=== PATIENT | male | born 1980 | race Caucasian/White ===

== ENCOUNTER 2020-01-28 19:50 | Emergency (ER) | payer SELFPAY ==
[2020-01-28 20:00] VITALS: BP 176/107; PULSE 89; RESP 14; TEMP 36.6; O2SAT 97; BMI 32.5
[2020-01-28] MEDS: TRAMadol 50 mg Tablet 100 MG PO (20:58)
[2020-01-28 21:00] VITALS: BP 197/125; PULSE 81; RESP 14; O2SAT 95
--- NOTE | 2020-02-04 00:28 | W.ED.DENTAL ---
HPI - Dental/Oral General: Chief complaint: Dental/Oral Stated complaint: dental pain Time Seen by Provider: 01/28/20 20:51 History of Present Illness: HPI Narrative: Glue tooth ache MD Complaint: tooth pain Review of Systems Narrative: Tooth ache Psych: Denies: anxiety or depression PFSH ED PFSH: Social History Smoking and tobacco status: current every day smoker Physical Exam HENMT: HEAD & SCALP: other (Stable dental caries no lockjaw) Psych: COMMON NORMALS: mental status grossly normal Course Vital Signs: Vital signs: Vital Signs Temperature 97.9 F 01/28/20 20:00 Pulse Rate 81 01/28/20 21:00 Respiratory Rate 14 01/28/20 21:00 Blood Pressure 197/125 01/28/20 21:00 Pulse Oximetry 95 01/28/20 21:00 Discharge Plan Discharge Clinical Impression: Toothache Condition: Stable Prescriptions: New tramadol 50 mg tablet 50 mg PO Q6H PRN (Reason: pain) Qty: 7 RF: 0 Discharge Orders: Discharge Order (Routine); Ordered 01/28/20 Ordered By: Damian Olivares Referrals: Greg Amor FNP [Primary Care Provider] - Discharge Diet: Usual diet Discharge Activity: Resume usual activity Patient Instructions: Dental Caries (ED) Activity Restrictions/Additional Instructions: Follow-up with dentist soon as possible Discharge Date/Time: 01/28/20 21:01 Coding Level of Care Code ED Lithographic Stripper for Jono Bridges
== END 2020-01-28 21:01 ==
PROVIDERS: Emergency Provider Nurse Practitioner Family; PCP Nurse Practitioner
DX: K08.89 Other specified disorders of teeth and supporting structures (principal); F17.210 Nicotine dependence, cigarettes, uncomplicated
CPT/HCPCS: 12345; 99281; 99282

== ENCOUNTER 2020-10-31 20:33 | Emergency (ER) | payer SELFPAY ==
[2020-10-31 20:48] VITALS: BP 139/85; PULSE 102; RESP 14; TEMP 36.3; O2SAT 96; BMI 34.4
[2020-10-31 20:58] LABS: Glucose Point of Care 445 mg/dL (70-110)
--- NOTE | 2020-11-01 00:13 | ED_ITS ---
HPI - General Adult General: Chief complaint: General Medical Stated complaint: high blood sugar Time Seen by Provider: 11/01/20 00:12 History of Present Illness: HPI narrative: Patient is a 40-year-old male who comes to the ED with elevated blood sugar. Patient has a past medical history of diabetes type 2. Patient was on Metformin but stopped taking it due to insurance approximately a year ago. Patient's Metformin dose was 1000 mg twice a day. He is currently not taking anything to manage his diabetes. He had this generalized feeling of elevated blood sugar and came to the ED to get evaluated. Denies any other symptoms, such as chest pain, shortness of breath, abdominal pain, nausea/vomiting, diarrhea, constipation, dysuria or hematuria. Associated symptoms: Reports malaise (Generalized feeling unwell due to elevated blood sugar); Deny chest pain, dyspnea, headache(s), nausea, rash, palpitations or vomiting Review of Systems Const: Reports: malaise (Generalized feeling unwell due to elevated blood sugar); Denies: fever(s), chills or fatigue Eyes: Denies: change in vision or eye discomfort ENMT: Denies: throat pain, odynophagia, nasal discharge or nasal congestion Card: Denies: chest pain, palpitations, edema, swelling of feet/ankles, dyspnea on exertion or orthopnea Resp: Denies: dyspnea, productive cough or non-productive cough GI: Denies: abdominal pain, nausea, vomiting, diarrhea, constipation or hematochezia : Denies: flank pain, difficulty urinating, dysuria or hematuria Musc: Denies: neck pain, back pain or extremity swelling Skin/Breast: Denies: rash or new lesions Neuro: Denies: headache(s), numbness in extremities or weakness in extremities [facility] PFSH: Social History Smoking and tobacco status: current every day smoker Physical Exam Const: COMMON NORMALS: no acute distress, patient oriented x3 and alert GENERAL APPEARANCE: cooperative and comfortable HENMT: COMMON NORMALS: normocephalic HEAD & SCALP: normocephalic MOUTH: Normal oral and palatal mucosa present THROAT: posterior oropharynx normal and uvula midline Eye: COMMON NORMALS: Equal, round and reactive pupils present PUPIL: Yes Equal, round and reactive pupils present Neck/C-Spine: COMMON NORMALS: supple GENERAL: Yes normal visual inspection Resp: COMMON NORMALS: normal respiratory effort, No retractions, No use of accessory muscles and clear to auscultation bilaterally AUSCULTATION: clear to auscultation bilaterally Cardio: COMMON NORMALS: regular rate, regular rhythm, S1 normal heart sound present, S2 normal heart sound present, No gallops present (Cardio), No clicks present (Cardio), No murmurs present (Cardio) and Peripheral pulses 2+ throughout RATE: regular rate RHYTHM: regular rhythm HEART SOUNDS: S1 normal heart sound present and S2 normal heart sound present PERIPHERAL PULSES: Peripheral pulses 2+ throughout GI: COMMON NORMALS: Normal to inspection, nondistended, normoactive bowel sounds present, Soft to palpation, non-tender and no masses PALPATION: Yes Soft to palpation : COMMON NORMALS: Yes no CVA tenderness BLADDER/KIDNEY EXAM: Yes no CVA tenderness Back/Pelvis: COMMON NORMALS: no CVA tenderness Extremity: COMMON NORMALS: normal to inspection Neuro: COMMON NORMALS: patient oriented x3 and moves all extremities SENSORIUM/ORIENTATION: Yes alert Skin: GENERAL SKIN EXAM: dry skin Course Vital Signs: Vital signs: Vital Signs Temperature 97.3 F L 10/31/20 20:48 Pulse Rate 96 11/01/20 01:42 Respiratory Rate 17 11/01/20 01:42 Blood Pressure 137/81 11/01/20 01:42 Pulse Oximetry 97 11/01/20 01:42 MDM - General Adult MDM Narrative: Medical decision making narrative: Patient is a 40-year-old male who comes to the ED with hyperglycemia. Patient has type 2 diabetes and was taking Metformin to treat it, but stopped taking it due to loss of insurance. Patient felt like his blood sugar was elevated and he came to the ED for evaluation. First blood sugar test here in the ED was 445 this was taken while patient was in the waiting room. His CBC was unremarkable and his blood sugar at the time he got back into her room was 319. Patient says the symptoms are improving and is feeling better. He was given 5 units of NovoLog subcutaneous and discharged. Patient was sent home with a prescription for Metformin. He was told to follow-up with his PCP in 7 to 10 days for reevaluation. Return to ED precautions given. Patient understood and agreed with plan. Lab Data: Attestation: I reviewed the patient's lab results. Labs: Lab Results 10/31/20 10/31/20 10/31/20 Range/Units 20:46 23:23 23:23 WBC 8.4 (4.0-10.0) 10^3/ uL RBC 5.37 H (4.1-5.3) 10^6/u L Hgb 17.3 H (11.7-16.6) g/dL Hct 49.0 (42.0-52.0) % MCV 91.2 (80-94) fL MCH 32.2 (28.0-34.0) pg MCHC 35.3 (30.0-36.0) g/dL RDW 11.9 L (12.1-15.1) % Plt Count 237 (130-400) 10^3/c mm MPV 10.6 H (7.4-10.4) fL Neut % (Auto) 53.1 % Lymph % (Auto) 33.9 % Sierra % (Auto) 6.1 % Eos % (Auto) 5.5 % Baso % (Auto) 0.7 % Neut # (Auto) 4.45 (1.8-7.7) 10^3/u L Lymph # (Auto) 2.8 (0.8-4.8) 10^3/u L Sierra # (Auto) 0.5 (0.2-0.9) 10^3/u L Eos # (Auto) 0.5 (0.0-0.8) 10^3/u L Baso # (Auto) 0.1 (0.0-0.1) 10^3/u L Nucleated RBC % (a uto) 0 % Nucleated RBCs # 0.0 /100WBC Sodium 134 L (136-145) mmol/L Potassium 4.2 (3.5-5.1) mmol/L Chloride 97 L (98-107) mmol/L Carbon Dioxide 26 (22-29) mmol/L Anion Gap 15.2 (5-19) BUN 14 (6-20) mg/dL Creatinine 1.2 (0.7-1.2) mg/dL GFR Calculation 67.8 L (90-130) mL/min Glucose 319 H (65-115) mg/dL POC Glucose 445 H (70-110) mg/dL Calculated Osmolal ity 291 (285-295) mOsm/k g Calcium 9.7 (8.5-10.5) mg/dL Total Bilirubin 0.4 (0.15-1.2) mg/dL AST 12 (0-40) U/L ALT 31 (0-41) U/L Alkaline Phosphata se 100 (40-130) IU/L Total Protein 7.9 (6.6-8.7) g/dL Albumin 4.4 (3.5-5.2) g/dL Globulin 3.5 (1.3-4.6) g/dL Urine Color (Yellow) Urine Appearance (CLEAR) Urine pH (5-7) Ur Specific Gravit y (1.005-1.030) Urine Protein (Negative) Urine Glucose (UA) (Normal) Urine Ketones (Negative) Urine Blood (Negative) Urine Nitrate (Negative) Urine Bilirubin (Negative) Urine Urobilinogen (Negative) mg/dL Ur Leukocyte Juani ase (Negative) Urine RBC (0-2) /hpf Urine WBC (0-5) /hpf Ur Squamous Epith Cells (0-5) /hpf Amorphous Sediment Urine Bacteria (NONE) /hpf 10/31/20 Range/Units 23:50 WBC (4.0-10.0) 10^3/ uL RBC (4.1-5.3) 10^6/u L Hgb (11.7-16.6) g/dL Hct (42.0-52.0) % MCV (80-94) fL MCH (28.0-34.0) pg MCHC (30.0-36.0) g/dL RDW (12.1-15.1) % Plt Count (130-400) 10^3/c mm MPV (7.4-10.4) fL Neut % (Auto) % Lymph % (Auto) % Sierra % (Auto) % Eos % (Auto) % Baso % (Auto) % Neut # (Auto) (1.8-7.7) 10^3/u L Lymph # (Auto) (0.8-4.8) 10^3/u L Sierra # (Auto) (0.2-0.9) 10^3/u L Eos # (Auto) (0.0-0.8) 10^3/u L Baso # (Auto) (0.0-0.1) 10^3/u L Nucleated RBC % (a uto) % Nucleated RBCs # /100WBC Sodium (136-145) mmol/L Potassium (3.5-5.1) mmol/L Chloride (98-107) mmol/L Carbon Dioxide (22-29) mmol/L Anion Gap (5-19) BUN (6-20) mg/dL Creatinine (0.7-1.2) mg/dL GFR Calculation (90-130) mL/min Glucose (65-115) mg/dL POC Glucose (70-110) mg/dL Calculated Osmolal ity (285-295) mOsm/k g Calcium (8.5-10.5) mg/dL Total Bilirubin (0.15-1.2) mg/dL AST (0-40) U/L ALT (0-41) U/L Alkaline Phosphata se (40-130) IU/L Total Protein (6.6-8.7) g/dL Albumin (3.5-5.2) g/dL Globulin (1.3-4.6) g/dL Urine Color Yellow (Yellow) Urine Appearance Turbid (CLEAR) Urine pH 5 (5-7) Ur Specific Gravit y 1.015 (1.005-1.030) Urine Protein Neg (Negative) Urine Glucose (UA) 4+ H (Normal) Urine Ketones Negative (Negative) Urine Blood Neg (Negative) Urine Nitrate Negative (Negative) Urine Bilirubin Neg (Negative) Urine Urobilinogen Norm (Negative) mg/dL Ur Leukocyte Juani ase Negative (Negative) Urine RBC 0-4 H (0-2) /hpf Urine WBC 5-10 H (0-5) /hpf Ur Squamous Epith Cells 15-25 H (0-5) /hpf Amorphous Sediment Not Reportable Urine Bacteria 1+ H (NONE) /hpf Discharge Plan Discharge Patient Disposition: Home Clinical Impression: Hyperglycemia due to type 2 diabetes mellitus Qualifiers: Diabetes mellitus middle or intermediate school principal insulin use: without correction use Qualified Code(s): E11.65 - Type 2 diabetes mellitus with hyperglycemia Condition: Stable Prescriptions: New metformin 1,000 mg tablet 1,000 mg PO BID Qty: 60 RF: 0 No Action tramadol 50 mg tablet 50 mg PO Q6H PRN (Reason: pain) Qty: 7 RF: 0 Discharge Orders: Discharge ED (Routine); Ordered 11/01/20 Ordered By: Rhett Ware Discharge Diet: Diabetic Discharge Activity: Resume usual activity Patient Instructions: Diabetes and Diet, Diabetes Mellitus Type 2 in Adults (ED) Activity Restrictions/Additional Instructions: Follow-up with medical provider as directed in 7 to 10 days to reevaluate diabetes medication management. Take medications as prescribed. Return to the ER or your medical provider if condition worsens. Please read and understand discharge instructions. If any questions, please ask. Coding Level of Care Code ED Special Education Preschool Teacher for Jono Fwd Exam Comprehensive
[2020-11-01 00:43] LABS: Basophils # 0.1 10^3/uL (0.0-0.1); Basophils % 0.7 %; Eosinophils # 0.5 10^3/uL (0.0-0.8); Eosinophils % 5.5 %; Hemoglobin 17.3 g/dL (11.7-16.6); Lymphocytes # 2.8 10^3/uL (0.8-4.8); Lymphocytes % 33.9 %; Mean Corpuscular HGB Conc 35.3 g/dL (30.0-36.0); Mean Corpuscular Hemoglobin 32.2 pg (28.0-34.0); Mean Corpuscular Volume 91.2 fL (80-94); Mean Platelet Volume 10.6 fL (7.4-10.4); Monocytes # 0.5 10^3/uL (0.2-0.9); Monocytes % 6.1 %; Neutrophils # 4.45 10^3/uL (1.8-7.7); Neutrophils % 53.1 %; Nucleated Red Blood Cells % 0 %; Platelet Count 237 10^3/cmm (130-400); Red Blood Count 5.37 10^6/uL (4.1-5.3); Red Cell Distribution Width 11.9 % (12.1-15.1); White Blood Count 8.4 10^3/uL (4.0-10.0)
[2020-11-01 00:52] LABS: Protein Urine Neg (Negative); Specific Gravity, Urine 1.015 (1.005-1.030); Urine Appearance Turbid (CLEAR); Urine Color Yellow (Yellow); pH Urine 5 (5-7)
[2020-11-01 00:53] LABS: Add Urine Microscopic? YES; Bilirubin Urine Neg (Negative); Blood Urine Neg (Negative); Glucose Urine UA 4+ (Normal); Ketones Urine Negative (Negative); Leukocyte Esterase Urine Negative (Negative); Nitrate Urine Negative (Negative); Urobilinogen Urine Norm (Negative)
[2020-11-01 00:57] LABS: Alanine Aminotransferase 31 U/L (0-41); Albumin Level 4.4 g/dL (3.5-5.2); Alkaline Phosphatase 100 IU/L (40-130); Anion Gap 15.2 (5-19); Aspartate Amino Transferase 12 U/L (0-40); Blood Urea Nitrogen 14 mg/dL (6-20); Calcium 9.7 mg/dL (8.5-10.5); Carbon Dioxide 26 mmol/L (22-29); Chloride 97 mmol/L (98-107); Globulin 3.5 g/dL (1.3-4.6); Glomerular Filtration Rate 67.8 mL/min (90-130); Glucose 319 mg/dL (65-115); Osmolality Calculated 291 mOsm/kg (285-295); Potassium 4.2 mmol/L (3.5-5.1); Sodium 134 mmol/L (136-145); Total Bilirubin 0.4 mg/dL (0.15-1.2); Total Protein 7.9 g/dL (6.6-8.7)
[2020-11-01 00:59] LABS: Add Urine Culture? No; Bacteria Urine 1+ /hpf; RBC Urine 0-4 /hpf (0-2); Squamous Epithelial Cell Urine 15-25 /hpf (0-5)
[2020-11-01 01:42] VITALS: BP 137/81; PULSE 96; RESP 17; O2SAT 97
== END 2020-11-01 01:42 | disposition home or self-care (01) ==
PROVIDERS: Emergency Medicine; Emergency Provider Physician Assistant
DX: E11.65 Type 2 diabetes mellitus with hyperglycemia (principal); F17.210 Nicotine dependence, cigarettes, uncomplicated
CPT/HCPCS: 36416; 80053; 81001; 82962; 85025; 96372; 99283; J1815

== ENCOUNTER 2023-02-15 18:28 | Emergency (ER) | payer MEDICAID, SELFPAY ==
[2023-02-15 18:38] VITALS: BP 120/85; PULSE 88; RESP 14; TEMP 36.4; O2SAT 98; BMI 31.9
--- NOTE | 2023-02-15 19:14 | XRR_ITS ---
PROCEDURE INFORMATION: Exam: XR Right Foot Exam date and time: 02/15/2023 7:30 PM Age: 43 years old Clinical indication: Injury or trauma; Other: Smashed RT big toe; Blunt trauma; Foot; Right; Additional info: Injury, right big toe TECHNIQUE: Imaging protocol: Radiologic exam of the right foot. Views: 3 or more views. COMPARISON: No relevant prior studies available. FINDINGS: Bones/joints: Normal. Soft tissues: Normal. XR/XR foot RT min 3V* [id number] IMPRESSION: No acute findings.
--- NOTE | 2023-02-15 20:45 | W.ED.EXTPRO ---
HPI - Extremity Problem General: Chief complaint: Extremity Injury, Lower Stated complaint: Toe Smashed Time Seen by Provider: 02/15/23 20:43 History of Present Illness: 43-year-old male patient comes in today for injury to the great toe of the right foot. Patient appears nontoxic. Medial aspect of the great toe nail is slightly avulsed. Blood is noted under the bed of the nail. Patient has a history of diabetes mellitus. Associated symptoms: Deny chest pain Review of Systems General: Reports: 10 or more systems reviewed and unremarkable except in HPI and below Card: Denies: chest pain Resp: Denies: dyspnea GI: Denies: vomiting : Denies: difficulty urinating Musc: Reports: extremity pain Skin/Breast: Reports: other (Right great toe nail injury) PFSH ED PFSH: Social History Smoking and tobacco status: current every day smoker Physical Exam Const: COMMON NORMALS: alert HENMT: HEAD & SCALP: normal to inspection Neck/C-Spine: COMMON NORMALS: full ROM Resp: COMMON NORMALS: normal respiratory effort and clear to auscultation bilaterally AUSCULTATION: clear to auscultation bilaterally Cardio: COMMON NORMALS: regular rate RATE: regular rate Neuro: SENSORIUM/ORIENTATION: Yes alert Course Vital Signs: Vital signs: Vital Signs Temperature 97.6 F 02/15/23 18:38 Pulse Rate 82 02/15/23 21:02 Respiratory Rate 18 02/15/23 21:02 Blood Pressure 142/72 02/15/23 21:02 Pulse Oximetry 98 02/15/23 21:02 Oxygen Delivery Me thod Room Air 02/15/23 21:02 MDM - Extremity (Nontraumatic) Medical Decision Making 43-year-old male patient comes in today for complaints of injury to the right great toe. Patient was taking apart a skill building when part of the building slid and struck his great toe. On exam patient has partial avulsion of the great toenail. Differential diagnosis includes fracture, nail avulsion, subungual hematoma. Partial nail avulsion was noted. Wound was cleaned and nail was reinserted on the lateral side back into the bed under local anesthetic. Wound was then dressed with antibiotic, bacitracin, ointment and gauze. Patient was placed in a postop shoe. Patient be kept on doxycycline 100 mg twice a day for 7 days. Patient was recommended use acetaminophen and ibuprofen for pain control. Patient was written for 6 tablets of hydrocodone to use as needed for severe pain. Lab Data Radiology Impressions Foot X-Ray 02/15/23 19:14 IMPRESSION: No acute findings. Discharge Plan Discharge Patient Disposition: Home Clinical Impression: Nail avulsion of toe Qualifiers: Encounter type: initial encounter Qualified Code(s): S91.209A - Unspecified open wound of unspecified toe(s) with damage to nail, initial encounter Condition: Stable Prescriptions: New doxycycline monohydrate 100 mg capsule 100 mg PO BID 7 Days Qty: 14 0RF hydrocodone-acetaminophen 5-325 mg tablet 1 tab PO Q6H PRN (Reason: pain (scale score 7-10)) Qty: 6 0RF bacitracin 500 unit/gram ointment 1 applic topical DAILY Qty: 28 0RF No Action tramadol 50 mg tablet 50 mg PO Q6H PRN (Reason: pain) Qty: 7 0RF metformin 1,000 mg tablet 1,000 mg PO BID Qty: 60 0RF Discharge Orders: Discharge ED (Routine); Ordered 02/15/23 Ordered By: Simba Henry Discharge Diet: Usual diet Discharge Activity: Increase activity as tolerated Patient Instructions: Nail Avulsion (ED), Opioid Safety Activity Restrictions/Additional Instructions: Home and rest. Keep wound clean and dry. Take antibiotic as directed. Apply [id number] antibiotic ointment to the toe. Use acetaminophen and ibuprofen to control pain. Use hydrocodone for severe pain. Follow-up with hearing aid assembly supervisor for further evaluation and treatment. Return to ED for new concerns. Stand Alone Forms: Work/School Release Coding Level of Care Code ED Road Inspector for Jono Bridges
[2023-02-15] MEDS: doxycycline 100 mg Tablet PO (20:55)
[2023-02-15] MEDS: HYDROcodone-acetaminophen 7.5-325 mg Tablet 1 TAB PO (20:56)
[2023-02-15 21:02] VITALS: BP 142/72; PULSE 82; RESP 18; O2SAT 98
--- NOTE | 2023-02-16 07:51 | DCPLANNER ---
Addendum entered by Heather Schwab 02/27/23 07:02: This appointment was rescheduled Addendum entered by Heather Schwab 02/16/23 09:52: Patient has a follow up appointment scheduled for Thursday, February 16, 2023 at 10:[address] Morton at [facility]. Original Note: seed sales manager had message to schedule a follow up appointment for patient with podiatry. seed sales manager sent patients information to the front office staff at podiatry. Patients information will be printed and reviewed. Clinic will call patient with appointment information.
--- NOTE | 2023-02-16 08:49 | DCPLANNER ---
field nurse case manager called patient due to no primary care physician - patient sees Dr. Maria Eugenia Pappas at [facility] in [place], [place].
== END 2023-02-15 21:44 | disposition home or self-care (01) ==
PROVIDERS: Emergency Provider Nurse Practitioner Family
DX: S91.201A Unspecified open wound of right great toe with damage to nail, initial encounter (principal); F17.210 Nicotine dependence, cigarettes, uncomplicated; E11.9 Type 2 diabetes mellitus without complications; X58.XXXA Exposure to other specified factors, initial encounter; Z79.84 Long term (current) use of oral hypoglycemic drugs
CPT/HCPCS: 73630; 99283